=== PATIENT | female | born 1995 | race Caucasian/White ===

== ENCOUNTER 2017-06-20 01:22 | Emergency (ER) | payer OTHER ==
[~2017-06-20] VITALS: Ht 170.2 cm; Wt 60.5 kg
[2017-06-20 01:30] VITALS: TEMP 36.5; O2SAT 100; Ht 170.2 cm; Wt 60.5 kg
[2017-06-20 02:22] LABS: CALCIUM 8.6 mg/dl (8.5-10.1); CREATININE 0.72 mg/dl (0.60-1.20)
[2017-06-20 02:27] LABS: PREG INTERNAL NEGATIVE QC NEG CLEAR BACKGROUND; PREG INTERNAL POSITIVE QC POS CONTROL LINE
[2017-06-20] MEDS ORDERED: POTASSIUM CHLORIDE 10 MEQ TABCR PO STA (03:53)
--- NOTE | 2017-06-20 03:53 | EMERGENCY ROOM VISIT NOTE ---
History Report prepared by Emyibheidi: Leonela Mitchell Under the Supervision of: Dr. James Lyman M.D. First contact with patient: 01:35 Chief Complaint: ALCOHOL OVERDOSE Stated Complaint: ALCOHOL History of Present Illness The patient is a 21 year old female who presents to the Emergency Room with complaints of an alcohol overdose. She was brought to the ED via EMS. EMS reports the patient was found drunk, "roaming around" in [facility]. She reports she does not live in [facility], but will not state where she resides. She has scratches on her left knee but declines answering how she got them. She denies hitting her head, any loss of consciousness or any abdominal pain. 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 She has no chronic medical problems. Additional information is unable to be obtained secondary to the patient's current intoxication. Source of History: patient, EMS History Limited By: intoxication Onset: [employer] Position: other (global) Timing: constant Review of Systems See HPI for pertinent positives and negatives. A total of ten systems were reviewed and were otherwise negative. Past Medical & Surgical Medical Problems: (1) No significant past medical history Social History Alcohol Use: occasionally Drug Use: none Marital Status: single Housing Status: lives with roommate Occupation Status: [employer] student Current/Historical Medications Unable to Obtain Active Prescriptions or Reported Meds Physical Exam Vital Signs Date Time Temp Pulse Resp B/P (MAP) Pulse Ox O2 Delivery O2 Flow Rate FiO2 06/20/17 01:45 96 06/20/17 01:30 36.5 100 16 116/69 100 Room Air 06/20/17 01:30 100 Room Air 06/20/17 01:30 100 Room Air Physical Exam GENERAL: Intoxicated, 21 year old female, well appearing, no distress HENT: Normocephalic, atraumatic. Oropharynx unremarkable. EYES: PERRL. Erythematous conjunctiva. Sclera non-icteric. NECK: Supple. No nuchal rigidity. FROM. RESPIRATORY: CTA CARDIAC: RRR GI/ABDOMEN: Soft, non distended. No tenderness to palpation. No rebound or guarding. No masses. RECTAL: Deferred. MUSCULOSKELETAL: No edema. No discoloration. Gross motor strength 5/5 bilaterally. Abrasion to the left knee and left thumb, no deformity, no lacerations. NEURO: Altered sensorium. No sensory or motor deficits noted. Speech slurred. SKIN: No rash or jaundice noted. LYMPH: No adenopathy. Medical Decision & Procedures Laboratory Results 06/20/17 01:45 Test 06/20/17 01:45 Anion Gap 8.0 mmol/L (3-11) Est Creatinine Clear Calc Drug Dose 120.0 ml/min Estimated GFR () 140.7 Estimated GFR (Non- 121.4 BUN/Creatinine Ratio 23.0 (10-20) Calcium Level 8.6 mg/dl (8.5-10.1) Human Chorionic Gonadotropin, Qual NEG (NEG) Ethyl Alcohol mg/dL 327.0 mg/dl (0-3) Laboratory results reviewed by me ED Course 0137: The patient was evaluated in room A12A. A complete history and physical exam was performed. 0155: I reevaluated the patient. She is sleeping. 0230: Patient reassessed and is hemodynamically stable. Sleeping. 0330: This patient is a sign out to Dr. Estes at the end of my shift. Medical Decision Triage Nursing notes reviewed and agree them. Additional history obtained from EMS. The patient's history was concerning for altered mental status and a possible alcohol overdose. Differential diagnosis: Etiologies such as toxicologic, infection, hypoglycemia, electrolyte abnormalities, cardiac sources, intracerebral event, neurologic, as well as others were entertained. Physical examination: As above ER treatment provided: Monitoring Aspiration precautions The patient was frequently reassessed. Potassium 40 mEq ordered for the patient and she is more awake. Diagnostic interpretation by me: Cardiac monitoring did not reveal any evidence of dysrhythmia. The labs revealed normal chemistries. The patient's blood alcohol level was very elevated at 327 mg/dL. This appears to be related to an isolated overdose of alcohol. There is no obvious head trauma. She had some minor abrasions on her knee. By the evaluation outlined above emergent etiologies such as trauma, infection , hypoglycemia, electrolyte abnormalities, cardiac sources, intracerebral event , neurologic,as well as others were deemed relatively unlikely. Given the patient's significant alcohol intoxication additional time will be necessary for this to clear. The patient's case was signed out to Dr. Estes at the change of shift for disposition. Medication Reconcilliation Current Medication List: was personally reviewed by me Blood Pressure Screening Patient's blood pressure: Normal blood pressure Impression Primary Impression: Alcohol intoxication Additional Impression: Hypokalemia Scribe Attestation The scribe's documentation has been prepared under my direction and personally reviewed by me in its entirety. I confirm that the note above accurately reflects all work, treatment, procedures, and medical decision making performed by me. Departure Information Dispostion Still a Patient (This patient is a sign out to Dr. Estes at the end of my shift. ) Prescriptions Unable to Obtain Active Prescriptions or Reported Meds Patient Instructions Alcohol Abuse - [facility], Alcohol Intoxication - [facility], [facility]: [employer] Students and Alcohol Related Visits, My [facility] Additional Instructions Do not drive or work for 24 hours. Ibuprofen may be used for headache. Eat a healthy diet and drink plenty of fluids. Refrain from alcohol use until you are 21. Return to the emergency department for fevers, vomiting, abdominal pain, chest pain, passing out, or as needed. Follow-up with your primary care physician in 2 to 3 days for a recheck of your current condition. Problem Qualifiers
[2017-06-20] MEDS ORDERED: POTASSIUM CHLORIDE 10 MEQ TABCR ONE (06:41)
--- NOTE | 2017-06-20 07:39 | EMERGENCY ROOM VISIT NOTE ---
ED Visit Note First contact with patient: 07:38 This case was signed out to me at change of shift around 3 AM. The patient rested comfortably throughout the night. Her vital signs remain stable. Once the patient was more awake this morning, I had a conversation with her and her friends about the hazards of such excessive alcohol use. I've encouraged her to avoid drinking this much in the future. I've suggested that she take plenty of clear liquids throughout the day today and use Tylenol or Motrin for headache.
[2017-06-20 07:43] VITALS: BP 106/60; PULSE 80; O2SAT 100
== END 2017-06-20 07:53 | disposition home or self-care (01) ==
LOC: EDBD 01:22 → C.EDA 01:24
DX: F10.129 Alcohol abuse with intoxication, unspecified (principal); Y90.8 Blood alcohol level of 240 mg/100 ml or more; E87.6 Hypokalemia